=== PATIENT | female | born 1940 ===

== ENCOUNTER 2016-08-14 13:09 | Observation (INO) | payer MEDICARE, OTHER ==
--- NOTE | 2016-08-14 14:37 | C.PDOC ---
History Of Present Illness 76F brought in by family for weakness in left upper arm that started yesterday. they also noted some confusion and "no acting right" 2 days ago on sat. they saw pcp today and was sent here. she had a ICH back in may and similar sx at that time. she has baseline weakness in right arm from that. no change in sx today from yesterday. mental status baseline currently. Time Seen by Provider: 08/14/16 14:32 Chief Complaint (Nursing): Weakness/Neurological Deficit Past Medical History Vital Signs: Last Vital Signs Temp 98.2 F 08/14/16 14:35 Pulse 67 08/14/16 14:35 Resp 18 08/14/16 14:35 BP 155/74 H 08/14/16 14:35 Pulse Ox 100 08/14/16 16:42 - Medical History PMH: Arthritis, HTN, Hypercholesterolemia, Peripheral Edema (Hx of left leg swelling) Family History: States: Unknown Family Hx - Social History Hx Tobacco Use: No Hx Alcohol Use: No Hx Substance Use: No - Immunization History Hx Tetanus Toxoid Vaccination: Yes Hx Influenza Vaccination: Yes Hx Pneumococcal Vaccination: Yes Review Of Systems Except As Marked, All Systems Reviewed And Found Negative. Constitutional: Negative for: Fever Eyes: Negative for: Vision Change Cardiovascular: Negative for: Chest Pain Respiratory: Negative for: Cough, Shortness of Breath Gastrointestinal: Negative for: Vomiting, Abdominal Pain Genitourinary: Negative for: Dysuria Musculoskeletal: Positive for: Arm Pain Neurological: Positive for: Weakness. Negative for: Numbness, Altered Mental Status (resolved), Headache Physical Exam - Physical Exam Appears: Well, Non-toxic, No Acute Distress Skin: Warm, Dry Head: Atraumatic Eye(s): bilateral: PERRL, EOMI Oral Mucosa: Moist Lips: No Swelling Neck: Normal ROM Cardiovascular: Rhythm Regular Respiratory: No Decreased Breath Sounds, No Accessory Muscle Use, No Rales, No Rhonchi, No Wheezing Gastrointestinal/Abdominal: Soft, No Tenderness Extremity: No Swelling Pulses: Left Radial: Normal, Right Radial: Normal, Left Dorsalis Pedis: Normal, Right Dorsalis Pedis: Normal Neurological/Psych: Oriented x3, Normal Cranial Nerves, Cerebellar Signs (mild drift right arm), Normal Motor, Normal Sensation ED Course And Treatment - Laboratory Results Result Diagrams: 08/14/16 15:57 08/14/16 15:57 O2 Sat by Pulse Oximetry: 100 NIHSS Stroke Scale - Date/Time Evaluation Performed Date Performed: 08/14/16 Time Performed: 14:40 - How Severe is the Stoke Level of Consciousness: 0=Alert LOC to Questions: 0=Both comments correct LOC to commands: 0=Obeys both correctly Best Gaze: 0=Normal Visual: 0=No visual loss Facial: 0=Normal Motor Arm - Left: 0=No drift Motor Arm - Right: 1=Drift noted before 10 sec Motor Leg - Left: 0=No drift Motor Leg - Right: 0=No drift Limb Ataxia: 0=Absent Sensory: 1=Mild to moderate loss Best Language: 0=No aphasia Dysarthia: 0=Normal articulation Extinction & Inattention (Neglect): 0=Normal, no object Score: 2 Severity Of Stroke: 1-4= Minor Stroke rTPA Inclusion/Exclusion - Exclusion Criteria for Altepase History of: Intracranial hemorrhage Medical Decision Making Medical Decision Making: ecg- nsr 66, nl axis, 1st deg avb, no stemi [address] david who will admit [address] Head, read by Rupesh Caruso MD: PROCEDURE: CT HEAD WITHOUT CONTRAST. HISTORY: right arm weak x1 day, hx of ICH COMPARISON: Comparison made with prior CT scan and MRI both dated 07/06/2016. TECHNIQUE: Axial computed tomography images were obtained through the head/brain without intravenous contrast. Radiation dose: Total exam DLP = 890.81 mGy-cm. FINDINGS: HEMORRHAGE: Previously noted elliptical shaped at hemorrhage within the left parasagittal mid and superior frontal region continues to evolve in unremarkable fashion. The hematoma has diminished in size, density and conspicuity. . Mild low- attenuation surrounding low-attenuation edema is present of has diminished as well. Changes no new hemorrhages are seen. BRAIN: Moderate chronic periventricular white matter ischemic extending peripherally into the deep and subcortical white matter of both cerebral hemispheres as well as multiple superior bilateral basal nuclei/ coronal radiata chronic appearing infarcts less well seen on this exam as compared to high-resolution MRI. VENTRICLES: Mild moderate central volume loss evidenced by disproportionate enlargement of the ventricles as compared the sulci unchanged. CALVARIUM: Unremarkable. PARANASAL SINUSES: Unremarkable as visualized. No significant inflammatory changes. MASTOID AIR CELLS: Unremarkable as visualized. No inflammatory changes. OTHER FINDINGS: None. IMPRESSION: Left parasagittal frontal lobe hematoma has diminished in size, density and conspicuity. Low-attenuation edema surrounding the hematoma has also diminished. . No new hemorrhages. Chronic white matter and basal nuclei ischemic changes less well seen on this study compared to high-resolution MRI. Mild moderate loss central volume loss. Disposition - Disposition Disposition: HOSPITALIZED Disposition Time: 16:30 Condition: STABLE - Clinical Impression Clinical Impression: Weakness of limb, Altered mental status
--- NOTE | 2016-08-14 15:38 | CT ---
PROCEDURE: CT HEAD WITHOUT CONTRAST. HISTORY: right arm weak x1 day, hx of ICH COMPARISON: Comparison made with prior CT scan and MRI both dated 07/06/2016. TECHNIQUE: Axial computed tomography images were obtained through the head/brain without intravenous contrast. Radiation dose: Total exam DLP = 890.81 mGy-cm. FINDINGS: HEMORRHAGE: Previously noted elliptical shaped at hemorrhage within the left parasagittal mid and superior frontal region continues to evolve in unremarkable fashion. The hematoma has diminished in size, density and conspicuity. . Mild low-attenuation surrounding low-attenuation edema is present of has diminished as well. Changes no new hemorrhages are seen. BRAIN: Moderate chronic periventricular white matter ischemic extending peripherally into the deep and subcortical white matter of both cerebral hemispheres as well as multiple superior bilateral basal nuclei/ coronal radiata chronic appearing infarcts less well seen on this exam as compared to high-resolution MRI. VENTRICLES: Mild moderate central volume loss evidenced by disproportionate enlargement of the ventricles as compared the sulci unchanged. CALVARIUM: Unremarkable. PARANASAL SINUSES: Unremarkable as visualized. No significant inflammatory changes. MASTOID AIR CELLS: Unremarkable as visualized. No inflammatory changes. OTHER FINDINGS: None. IMPRESSION: Left parasagittal frontal lobe hematoma has diminished in size, density and conspicuity. Low-attenuation edema surrounding the hematoma has also diminished. . No new hemorrhages. Chronic white matter and basal nuclei ischemic changes less well seen on this study compared to high-resolution MRI. Mild moderate loss central volume loss.
[2016-08-14 16:03] LABS: BASO % 0.5 % (0.0-2.0); EOS # 0.1 K/uL (0.0-0.7); HEMATOCRIT 30.9 % (34.0-47.0); LYMPH # 1.7 K/uL (1.0-4.3); LYMPH % 21.8 % (20.0-40.0); MEAN CELL VOLUME 75.6 fL (81.0-99.0); MEAN CORPUSCULAR HEMOGLOBIN 24.8 pg (27.0-31.0); MEAN CORPUSCULAR HGB CONC 32.8 g/dL (33.0-37.0); MEAN PLATELET VOLUME 8.5 fL (7.2-11.7); MONO # 0.8 K/uL (0.0-0.8); MONO % 10.9 % (0.0-10.0); RED CELL DISTRIBUTION WIDTH 14.5 % (11.5-14.5); WHITE BLOOD COUNT 7.8 K/uL (4.8-10.8)
[2016-08-14 16:09] LABS: CHLORIDE 95 mmol/L (98-107); POTASSIUM 3.6 mmol/L (3.6-5.2); SODIUM 138 mmol/L (132-148)
[2016-08-14 16:11] LABS: AST/SGOT 25 U/L (14-36); BILIRUBIN,TOTAL 0.9 mg/dL (0.2-1.3); CARBON DIOXIDE 28 mmol/L (22-30); GFR AFRICAN-AMERICAN > 60
[2016-08-14 16:12] LABS: ALB/GLOB RATIO 1.1 (1.0-2.1); ALKALINE PHOSPHATASE 66 U/L (38-126); ALT/SGPT 15 U/L (9-52); BLOOD UREA NITROGEN 15 mg/dL (7-17); GLUCOSE,RANDOM 111 mg/dL (65-105); TOTAL PROTEIN 7.5 g/dL (6.3-8.3)
[2016-08-14 16:13] LABS: CALCIUM 9.2 mg/dl (8.6-10.4)
[2016-08-14 16:48] LABS: INR 1.2
[2016-08-14] MEDS ORDERED: Magnesium Hydroxide Susp 30 ml UD PO PRN (21:32)
[2016-08-14 22:18] LABS: CHOLESTEROL 140 mg/dL (0-199)
--- NOTE | 2016-08-14 23:47 | CP.PCM.CON ---
History of Present Illness - History of Present Illness History of Present Illness: Chief Complaint (Nursing): Altered Mental Status, Weakness/Neurological Deficit 76F brought in by family for weakness in Right upper arm that started yesterday. They also noted some confusion and "not acting right" 2 days ago on Sunday. She had a Urinary incontinence on Sunday, but did not tell her kids. Her Right sided weakness has improved. H/O Negative Carotid Doppler in May 2016 She does not walk since few months due to her May 2016 Stroke. She said she has no Cardiac Pacemaker and has no Contraindication for an MRI. They saw pcp today and was sent here. she had a Intra Crania Hemorrhage back in May and similar symptoms at that time. she has baseline weakness in right arm from that. no change in symptoms today from yesterday. mental status baseline currently. Clinical Impression: Weakness of limb, Altered mental status Past Medical History Vital Signs: Last Vital Signs Temp 98.2 F 08/14/16 14:35 Pulse 67 08/14/16 14:35 Resp 18 08/14/16 14:35 BP 155/74 H 08/14/16 14:35 Pulse Ox 100 08/14/16 16:42 - Medical History PMH: Arthritis, HTN, Hypercholesterolemia, Peripheral Edema (Hx of left leg swelling) Colon cancer with partial Colon resection, old H/o Hysterectomy. Family History: States: Unknown Family Hx - Social History Hx Tobacco Use: No Hx Alcohol Use: No Hx Substance Use: No - Immunization History Hx Tetanus Toxoid Vaccination: Yes Hx Influenza Vaccination: Yes Hx Pneumococcal Vaccination: Yes Review Of Systems Except As Marked, All Systems Reviewed And Found Negative. Constitutional: Negative for: Fever Eyes: Negative for: Vision Change Cardiovascular: Negative for: Chest Pain Respiratory: Negative for: Cough, Shortness of Breath Gastrointestinal: Negative for: Vomiting, Abdominal Pain Genitourinary: Negative for: Dysuria Musculoskeletal: Positive for: Arm Pain Neurological: Positive for: Weakness. Negative for: Numbness, Altered Mental Status (resolved), Headache O2 Sat by Pulse Oximetry: 100 NIHSS Stroke Scale Score is 2 - Date/Time Evaluation Performed Date Performed: 08/14/16 Time Performed: 14:40 - How Severe is the Stoke Level of Consciousness: 0=Alert LOC to Questions: 0=Both comments correct LOC to commands: 0=Obeys both correctly Best Gaze: 0=Normal Visual: 0=No visual loss Facial: 0=Normal Motor Arm - Left: 0=No drift Motor Arm - Right: 1=Drift noted before 10 sec Motor Leg - Left: 0=No drift Motor Leg - Right: 0=No drift Limb Ataxia: 0=Absent Sensory: 1=Mild to moderate loss Best Language: 0=No aphasia Dysarthia: 0=Normal articulation Extinction & Inattention (Neglect): 0=Normal, no object Score: 2 Severity Of Stroke: 1-4= Minor Stroke rTPA Inclusion/Exclusion - Exclusion Criteria for Altepase History of: Intracranial hemorrhage Medical Decision Making: EKG- nsr 66, Normal axis, 1st degree A-V Heart block, no stemi CT Brain IMPRESSION: Left parasagittal frontal lobe hematoma has diminished in size, density and conspicuity. Low-attenuation edema surrounding the hematoma has also diminished. . No new hemorrhages. Chronic white matter and basal nuclei ischemic changes less well seen on this study compared to high-resolution MRI. Mild moderate loss central volume loss. Past Patient History - Past Medical History & Family History Past Medical History?: Yes - Past Social History Smoking Status: Never Smoked - CARDIAC Hx Cardiac Disorders: Yes Hx Hypercholesterolemia: Yes Hx Hypertension: Yes Hx Peripheral Edema: Yes (Hx of left leg swelling) - PULMONARY Hx Respiratory Disorders: No - NEUROLOGICAL Hx Neurological Disorder: Yes HX Cerebrovascular Accident: Yes (R sided residual- may 2016) Hx Dizziness: Yes - HEENT Hx HEENT Problems: No - RENAL Hx Chronic Kidney Disease: No - ENDOCRINE/METABOLIC Hx Endocrine Disorders: No Other/Comment: sugar high - HEMATOLOGICAL/ONCOLOGICAL Hx Blood Disorders: Yes Hx Cancer: Yes (colon cancer with resection) - INTEGUMENTARY Hx Dermatological Problems: No - MUSCULOSKELETAL/RHEUMATOLOGICAL Hx Musculoskeletal Disorders: Yes Hx Arthritis: Yes - GASTROINTESTINAL Hx Gastrointestinal Disorders: Yes Hx Gastroesophageal Reflux: Yes Other/Comment: Partial colon resection 2004 due to cancer - GENITOURINARY/GYNECOLOGICAL Hx Genitourinary Disorders: Yes Hx Incontinence: Yes Other/Comment: hysterectomy - PSYCHIATRIC Hx Substance Use: No - SURGICAL HISTORY Hx Surgeries: Yes Hx Hysterectomy: Yes Other/Comment: partial colon resection 2004 - ANESTHESIA Hx Anesthesia: Yes Hx Anesthesia Reactions: No Meds Allergies/Adverse Reactions: Allergies Allergy/AdvReac Type Severity Reaction Status Date / Time No Known Allergies Allergy Verified 08/14/16 14:10 - Medications Medications: Current Medications Acetaminophen (Tylenol 325mg Tab) 2 mg PO Q4 PRN PRN Reason: Temperature Amlodipine Besylate (Norvasc) 10 mg PO DAILY [facility] Aspirin (Ecotrin) 325 mg PO DAILY [facility] Clopidogrel Bisulfate (Plavix) 75 mg PO DAILY [facility] Losartan Potassium (Cozaar) 100 mg PO DAILY [facility] Magnesium Hydroxide (Milk Of Magnesia) 30 ml PO HS PRN PRN Reason: Constipation Pantoprazole Sodium (Protonix Ec Tab) 40 mg PO DAILY [facility] Rosuvastatin Calcium (Crestor) 10 mg PO HS [facility] Last Admin: 08/14/16 22:20 Dose: 10 mg Physical Exam - Neurological Exam Additional comments: Mental Status: Awake Alert Oriented X 3 Fluent coherent speech Normal Cognition Follows commands. Cranial Nerves II to XII: No Deficits Motor: Normal Tone, Power and muscle bulk DTR 0/4 Toes are up going on the Right Cerebellar: Normal FNT bilaterally Unable to assess the LEs Sensory: No Deficits Stature and Gait: Unable. Results - Vital Signs Recent Vital Signs: Last Vital Signs Temp 99 F 08/14/16 22:06 Pulse 64 08/14/16 22:41 Resp 18 08/14/16 22:06 BP 144/85 08/14/16 22:06 Pulse Ox 98 08/14/16 22:06 - Labs Result Diagrams: 08/14/16 15:57 08/14/16 15:57 Labs: Laboratory Results - last 24 hr 08/14/16 22:07 Triglycerides 89 D Cholesterol 140 LDL Cholesterol Direct 47 HDL Cholesterol 55 Assessment & Plan (1) Altered mental status Assessment and Plan: Improved significantly since then. 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 Status: Acute
[2016-08-15 06:28] LABS: URIC ACID 4.4 mg/dL (2.2-7.5)
[2016-08-15 06:57] LABS: THYROID STIMULATING HORMONE 2.42 mIU/L (0.46-4.68)
[2016-08-15] MEDS: Pantoprazole 40 mg EC Tab PO SCH (09:49)
[2016-08-15] MEDS ORDERED: Aspirin 325 mg EC Tablets PO SCH (10:00)
--- NOTE | 2016-08-15 11:40 | CP.PCM.HP ---
History of Present Illness - History of Present Illness History of Present Illness: COMPREHENSIVE HISTORY & PHYSICAL EXAM HPI PT. ADMITTED FROM ER WITH WEAKNESS OF R. U EXT. 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 UEXT AND MILD WAEKNESS IN R. LOWER EXT . SPEECH HAS NORMALISED . CT OF HEAD SHOWED NO NEW FINDINGS PT ALSOM HAD URINARY INCONTINANCE PAST HIST. HTN/STROKE PERSONAL HIST: Smoking. N Alcohol. N Allergy N Travel_- . FAMILY HIST : ROS : Constitutional: Negative for weight change, chills, night sweats Eyes: Negative for redness, swelling, itching, discharge, vision changes, blurry vision, double vision, glaucoma, cataracts, Ears: Negative for hearing loss, ringing, , tinnitus, vertigo Nose: Negative for rhinorrhea, stuffiness, sniffing, itching, postnasal drip, discoloration, nasal congestion and epistaxis. Throat: Negative for throat clearing, sore throat, hoarseness, difficulty swallowing and difficulty speaking. Respiratory: Negative for cough, chest tightness, sputum or phlegm, chronic cough, hemoptysis, wheezing, snoring at night, pleuritic chest pain and daytime somnolence. Cardiovascular: Negative for chest pain, palpitations, orthopnea, PND, Edema of legs, leg cramps, angina, claudication, , irregular heartbeat, Neurology: R UPPER EXT WEAKNESS Gastrointestinal: Negative for difficulty swallowing, diarrhea, constipation, black stools, rectal bleeding, nausea, flatulence, reflux, poor appetite, changes in bowel habits, abdominal pain Genitourinary: Negative for frequent urination, hematuria, discharge, incontinence, urinary retention, frequent UTI, Psychiatric: Negative for depression, anxiety/panic, suicidal tendencies, Musculoskeletal: Negative for swollen joints, back pain, , neck pain, morning stiffness of joints, . Skin: Negative for rash, ulcers, itching, dry skin and pigmented lesions. P/E: Constitutional: Appears stated age and in no apparent distress. Head: Normocephalic. Ears: External ear canals patent without inflammation. Tympanic membranes intact with normal light reflex and landmark. Eyes: Pupils are central, bilaterally equal, symmetrical and reacts to light with normal movements and no icterus or pallor. Nose: External nares are patent. Mucosa is pink Mouth-Throat: Good general appearance and condition. No post-pharyngeal/oropharyngeal erythema and tonsillar hypertrophy. Good dental hygiene. Neck-Lymphatic: Neck is supple with normal ROM, no thyromegaly, lymph nodes or masses. JVD is normal with no carotid bruit. Lungs: Clear to percussion and auscultation with bilateral normal air entry. Cardiovascular: S1 and S2 are normal with no murmurs, gallops and rub. GI Exam: No hepatomegaly. Abdomen is soft and non-tender. No Organomegaly , masses or hernias are evident and bowel sounds are normal and active. Neurology: Higher function and all cranial nerves intact, with no gross motor or sensory deficit. Superficial and deep reflexes are normal with downwards planters. No cerebellar deficit with normal gait. Musculoskeletal: No tender spots with normal curvature of the spine with no swelling or restricted ROM of the small and large joints. Extremities: Homans sign absent. Intact pulses with no pitting edema, calf tenderness or skin color changes. Skin: No rash, eruptions or abnormal skin pigmentation LAB/RADIOLOGY: ASSESMENT : CURRENTLU PT HAS NO NEURO DEFICIT S/P HEM. STROKE ON R. SIDE WITH RECPOVERY HTN PLAN MRI/EEG Present on Admission - Present on Admission Any Indicators Present on Admission: No Past Patient History - Past Medical History & Family History Past Medical History?: Yes - Past Social History Smoking Status: Never Smoked - CARDIAC Hx Cardiac Disorders: Yes Hx Hypercholesterolemia: Yes Hx Hypertension: Yes Hx Peripheral Edema: Yes (Hx of left leg swelling) - PULMONARY Hx Respiratory Disorders: No - NEUROLOGICAL Hx Neurological Disorder: Yes HX Cerebrovascular Accident: Yes (R sided residual- may 2016) Hx Dizziness: Yes - HEENT Hx HEENT Problems: No - RENAL Hx Chronic Kidney Disease: No - ENDOCRINE/METABOLIC Hx Endocrine Disorders: No Other/Comment: sugar high - HEMATOLOGICAL/ONCOLOGICAL Hx Blood Disorders: Yes Hx Cancer: Yes (colon cancer with resection) - INTEGUMENTARY Hx Dermatological Problems: No - MUSCULOSKELETAL/RHEUMATOLOGICAL Hx Musculoskeletal Disorders: Yes Hx Arthritis: Yes - GASTROINTESTINAL Hx Gastrointestinal Disorders: Yes Hx Gastroesophageal Reflux: Yes Other/Comment: Partial colon resection 2004 due to cancer - GENITOURINARY/GYNECOLOGICAL Hx Genitourinary Disorders: Yes Hx Incontinence: Yes Other/Comment: hysterectomy - PSYCHIATRIC Hx Substance Use: No - SURGICAL HISTORY Hx Surgeries: Yes Hx Hysterectomy: Yes Other/Comment: partial colon resection 2004 - ANESTHESIA Hx Anesthesia: Yes Hx Anesthesia Reactions: No Meds Allergies/Adverse Reactions: Allergies Allergy/AdvReac Type Severity Reaction Status Date / Time No Known Allergies Allergy Verified 08/14/16 14:10 Results - Vital Signs Recent Vital Signs: Last Vital Signs Temp 98.3 F 08/15/16 09:48 Pulse 68 08/15/16 09:48 Resp 18 08/15/16 09:48 BP 136/71 08/15/16 09:48 Pulse Ox 97 08/15/16 09:48 - Labs Result Diagrams: 08/14/16 15:57 08/14/16 15:57 Labs: Laboratory Results - last 24 hr 08/14/16 08/15/16 22:07 06:07 ESR 43 H Hemoglobin A1c 7.0 H Uric Acid 4.4 C-React Prot High Sens > 15.00 H Triglycerides 89 D 88 Cholesterol 140 131 LDL Cholesterol Direct 47 45 HDL Cholesterol 55 45 TSH 3rd Generation 2.42 Rheum Arthritis Panel Negative
--- NOTE | 2016-08-15 14:00 | MRI ---
PROCEDURE: MRI BRAIN WITHOUT CONTRAST HISTORY: CVA, Seizures COMPARISON: Noncontrast head CT from 08/14/2016 and 07/06/2016. MRI brain without contrast from 07/06/2009. TECHNIQUE: Multiplanar, multisequence MR images of the brain were obtained without intravenous contrast enhancement. FINDINGS: HEMORRHAGE: There is interval expected evolution of known left parasagittal hematoma which now appears hyperintense on T1 weighted and hypointense T2 weighted images with a smaller T2 hyperintense area in the immediate paramedian region. There is a peripheral hypo intense rim on all sequences and peripheral increased magnetic susceptibility on gradient image. The hematoma now measures 4.6 x 1.4 x 4.7 cm and there is moderate surrounding vasogenic edema with mild mass effect on the anterior body of the corpus callosum. DWI: No evidence of an acute or early subacute infarction. BRAIN PARENCHYMA: There is no extra-axial fluid collection. Again seen are mild chronic microangiopathic changes. The midline sagittal structures are normal. VENTRICLES: There is mild age-related global parenchymal volume loss and proportionate enlargement of the ventricles and cortical sulci. CRANIUM: There is normal bone marrow signal pattern. ORBITS: Grossly unremarkable. PARANASAL SINUSES/MASTOIDS: Predominantly clear. VASCULAR SYSTEM: There are normal signal voids in the larger intracranial arteries. OTHER FINDINGS: None. IMPRESSION: Interval expected evolution of known left paramedian frontal lobe hematoma which now measures 4.6 x 1.4 x 4.7 cm with moderate surrounding vasogenic edema and mild mass effect on the anterior body of the corpus callosum. No evidence of midline shift or herniation.
--- NOTE | 2016-08-15 20:35 | CARD ---
APPROVED REPORT EKG Measurement Heart [id number] CO [id number] <Conclusion> Sinus rhythm with 1st degree AV block Otherwise normal ECG
--- NOTE | 2016-08-16 00:11 | CP.PCM.PN ---
Subjective - Date & Time of Evaluation Date of Evaluation: 08/15/16 Time of Evaluation: 21:00 - Subjective Subjective: After the result of the MRI Brain showing a hematoma, I recommend to hold ASA and Plavix for a week to avoid complications. CVA, Transient Right Hemiparesis, old history of the very same condition in May 2016. She is stable. EKG: Sinus rhythm with 1st degree A-V block Otherwise normal ECG. High ESR 43. High CRP above 15. High Hb A1C 7. She has a picture of a Borderline DM. Normal TSH. IMPRESSION of the MRI Brain: Interval expected evolution of known left paramedian frontal lobe hematoma which now measures 4.6 x 1.4 x 4.7 cm with moderate surrounding vasogenic edema and mild mass effect on the anterior body of the corpus callosum. No evidence of midline shift or herniation. The ASA and Plavix are given and Dr Rodriguez is not objecting giving the ASA and Plavix. The Stroke is mild and is not causing a midline shift. Lipid Profile is normal. Patient is fully awake, alert oriented X 2, has difficulty with being oriented to time. Objective - Vital Signs/Intake and Output Vital Signs (last 24 hours): Temp Pulse Resp BP Pulse Ox 99.4 F 74 20 122/67 98 08/15/16 15:30 08/15/16 16:00 08/15/16 15:30 08/15/16 15:30 08/15/16 15:30 Intake and Output: 08/15/16 08/16/16 18:59 06:59 Intake Total 250 Balance 250 - Medications Medications: Current Medications Acetaminophen (Tylenol 325mg Tab) 2 mg PO Q4 PRN PRN Reason: Temperature Amlodipine Besylate (Norvasc) 10 mg PO DAILY [facility] Last Admin: 08/15/16 09:50 Dose: 10 mg Aspirin (Ecotrin) 325 mg PO DAILY [facility] Last Admin: 08/15/16 09:49 Dose: 325 mg Clopidogrel Bisulfate (Plavix) 75 mg PO DAILY [facility] Last Admin: 08/15/16 09:50 Dose: 75 mg Losartan Potassium (Cozaar) 100 mg PO DAILY [facility] Last Admin: 08/15/16 09:50 Dose: 100 mg Magnesium Hydroxide (Milk Of Magnesia) 30 ml PO HS PRN PRN Reason: Constipation Pantoprazole Sodium (Protonix Ec Tab) 40 mg PO DAILY [facility] Last Admin: 08/15/16 09:49 Dose: 40 mg Rosuvastatin Calcium (Crestor) 10 mg PO HS [facility] Last Admin: 08/15/16 21:28 Dose: 10 mg - Labs Labs: PT 12.9 SECONDS (9.7-12.2) H 08/14/16 15:58 INR 1.2 08/14/16 15:58 APTT 27 SECONDS (21-34) 08/14/16 15:57 Assessment and Plan (1) Altered mental status Status: Acute (2) Weakness of limb Status: Acute (3) Intraparenchymal hematoma of brain Status: Acute (4) Hypertension Status: Chronic (5) CVA (cerebral vascular accident) Assessment & Plan: Abnormal MRI of the Brain showing an area of CVA of new onset at the same area of the previous Stroke. No Midline shift, only local swelling. After the result of the MRI Brain showing a hematoma, I recommend to hold ASA and Plavix for a week to avoid complications. 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
[2016-08-16] MEDS: Pantoprazole 40 mg EC Tab PO SCH (09:25)
[2016-08-16 12:34] LABS: ANA TITER 1:40
--- NOTE | 2016-08-16 13:15 | CP.PCM.DIS ---
Provider - Provider Date of Admission: 08/14/16 16:42 Attending physician: Eliana Rodriguez MD Time Spent in preparation of Discharge (in minutes): 30 Hospital Course - Lab Results Lab Results: Most Recent Lab Values WBC 7.8 K/uL (4.8-10.8) 08/14/16 15:57 RBC 4.09 Mil/uL (3.80-5.20) 08/14/16 15:57 Hgb 10.1 g/dL (11.0-16.0) L D 08/14/16 15:57 Hct 30.9 % (34.0-47.0) L 08/14/16 15:57 MCV 75.6 fL (81.0-99.0) L 08/14/16 15:57 MCH 24.8 pg (27.0-31.0) L 08/14/16 15:57 MCHC 32.8 g/dL (33.0-37.0) L 08/14/16 15:57 RDW 14.5 % (11.5-14.5) 08/14/16 15:57 Plt Count 200 K/uL (130-400) 08/14/16 15:57 MPV 8.5 fL (7.2-11.7) 08/14/16 15:57 Neut % (Auto) 65.8 % (50.0-75.0) 08/14/16 15:57 Lymph % (Auto) 21.8 % (20.0-40.0) 08/14/16 15:57 Sharkey % (Auto) 10.9 % (0.0-10.0) H 08/14/16 15:57 Eos % (Auto) 1.0 % (0.0-4.0) 08/14/16 15:57 Baso % (Auto) 0.5 % (0.0-2.0) 08/14/16 15:57 Neut # 5.1 K/uL (1.8-7.0) 08/14/16 15:57 Lymph # 1.7 K/uL (1.0-4.3) 08/14/16 15:57 Sharkey # 0.8 K/uL (0.0-0.8) 08/14/16 15:57 Eos # 0.1 K/uL (0.0-0.7) 08/14/16 15:57 Baso # 0.0 K/uL (0.0-0.2) 08/14/16 15:57 ESR 43 mm/hr (0-20) H 08/15/16 06:07 PT 12.9 SECONDS (9.7-12.2) H 08/14/16 15:58 INR 1.2 08/14/16 15:58 APTT 27 SECONDS (21-34) 08/14/16 15:57 Sodium 138 mmol/L (132-148) 08/14/16 15:57 Potassium 3.6 mmol/L (3.6-5.2) 08/14/16 15:57 Chloride 95 mmol/L (98-107) L 08/14/16 15:57 Carbon Dioxide 28 mmol/L (22-30) 08/14/16 15:57 Anion Gap 19 (10-20) 08/14/16 15:57 BUN 15 mg/dL (7-17) 08/14/16 15:57 Creatinine 0.6 MG/DL (0.7-1.2) L 08/14/16 15:57 Est GFR ( Amer) > 60 08/14/16 15:57 Est GFR (Non-Af Amer) > 60 08/14/16 15:57 Random Glucose 111 mg/dL (65-105) H 08/14/16 15:57 Hemoglobin A1c 7.0 % (4.2-6.5) H 08/15/16 06:07 Uric Acid 4.4 mg/dL (2.2-7.5) 08/15/16 06:07 Calcium 9.2 mg/dl (8.6-10.4) 08/14/16 15:57 Total Bilirubin 0.9 mg/dL (0.2-1.3) 08/14/16 15:57 AST 25 U/L (14-36) 08/14/16 15:57 ALT 15 U/L (9-52) 08/14/16 15:57 Alkaline Phosphatase 66 U/L (38-126) 08/14/16 15:57 C-React Prot High Sens > 15.00 mg/L (1.00-3.00) H 08/15/16 06:07 Total Protein 7.5 g/dL (6.3-8.3) 08/14/16 15:57 Albumin 4.0 g/dL (3.5-5.0) 08/14/16 15:57 Globulin 3.6 gm/dL (2.2-3.9) 08/14/16 15:57 Albumin/Globulin Ratio 1.1 (1.0-2.1) 08/14/16 15:57 Triglycerides 88 mg/dL (0-149) 08/15/16 06:07 Cholesterol 131 mg/dL (0-199) 08/15/16 06:07 LDL Cholesterol Direct 45 mg/dL (0-129) 08/15/16 06:07 HDL Cholesterol 45 mg/dL (30-70) 08/15/16 06:07 TSH 3rd Generation 2.42 mIU/L (0.46-4.68) 08/15/16 06:07 Rheum Arthritis Panel Negative (NEGATIVE) 08/15/16 06:07 JESUSITA 6 Profile Positive (NEGATIVE) H 08/15/16 06:07 JESUSITA Titer 1:40 H 08/15/16 06:07 JESUSITA Pattern Speckled H 08/15/16 06:07 - Hospital Course Hospital Course: PT. ADMITTED FROM ER WITH WEAKNESS OF R. U EXT. 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 UEXT AND MILD WAEKNESS IN R. LOWER EXT . SPEECH HAS NORMALISED . CT OF HEAD SHOWED NO NEW FINDINGS PT ALSOM HAD URINARY INCONTINANCE MRI HEAD SHOWED NONEW FINDINGS, OLD HEMATOMA ON LEFT FRONTAL REGION PT HAS NO NEURO DEFICIT WILL D/C WITHOUT ASA /PLAVIX PER NEUROLOGY EEG SHOWED FOCAL SEIZURE POINT PER DR. BELL PT WAS RX KEPPRA 500MG BID Discharge Plan - Follow Up Plan Condition: STABLE Disposition: HOME/ ROUTINE Instructions: Heart Healthy Diet (DC), Hypertension (DC), Stroke (DC) Additional Instructions: Follow up with PMD in 1 week No aspirin or plavix for now as per Neurologist. Follow up with neurologist in 1 week Referrals: Mitchel Bell MD [Staff Provider] - Eliana Rodriguez MD [Staff Provider] -
--- NOTE | 2016-08-16 15:31 | CP.PCM.PN ---
Subjective - Date & Time of Evaluation Date of Evaluation: 08/16/16 Time of Evaluation: 15:32 - Subjective Subjective: Alert, awake, no acute distress. Objective - Vital Signs/Intake and Output Vital Signs (last 24 hours): Temp Pulse Resp BP Pulse Ox 99 F 71 18 133/66 98 08/16/16 07:20 08/16/16 09:25 08/16/16 07:20 08/16/16 09:25 08/16/16 07:20 Intake and Output: 08/16/16 08/16/16 06:59 18:59 Intake Total 100 400 Balance 100 400 - Medications Medications: Current Medications Acetaminophen (Tylenol 325mg Tab) 650 mg PO Q4 PRN PRN Reason: Temperature Amlodipine Besylate (Norvasc) 10 mg PO DAILY [facility] Last Admin: 08/16/16 09:25 Dose: 10 mg Losartan Potassium (Cozaar) 100 mg PO DAILY [facility] Last Admin: 08/16/16 09:25 Dose: 100 mg Magnesium Hydroxide (Milk Of Magnesia) 30 ml PO HS PRN PRN Reason: Constipation Pantoprazole Sodium (Protonix Ec Tab) 40 mg PO DAILY [facility] Last Admin: 08/16/16 09:25 Dose: 40 mg Rosuvastatin Calcium (Crestor) 10 mg PO HS [facility] Last Admin: 08/15/16 21:28 Dose: 10 mg - Labs Labs: PT 12.9 SECONDS (9.7-12.2) H 08/14/16 15:58 INR 1.2 08/14/16 15:58 APTT 27 SECONDS (21-34) 08/14/16 15:57 Assessment and Plan - Assessment and Plan (Free Text) Assessment: Patient is seen and examined at the bedside. Alert, oriented, denies sob or pains, NAD. D/W DR Rodriguez, plan to discharge home today, advised to folow up with PMD in 1 week.
[2016-08-16 16:34] VITALS: BP 128/77; PULSE 68; RESP 20; TEMP 99.5; O2SAT 99
--- NOTE | 2016-08-16 23:08 | CP.PCM.PN ---
Subjective - Date & Time of Evaluation Date of Evaluation: 08/16/16 Time of Evaluation: 15:00 - Subjective Subjective: Patient is discharged safely while her MRI Brain is showing a hematoma. It is not clear if it is an old or new Hematoma. We can restatrt the Plavix and ASA next week for safety. She is doing better. EEG is needed to assess for possible seizures. Objective - Vital Signs/Intake and Output Vital Signs (last 24 hours): Temp Pulse Resp BP Pulse Ox 99.5 F 68 20 128/77 99 08/16/16 16:32 08/16/16 16:32 08/16/16 16:32 08/16/16 16:32 08/16/16 16:32 Intake and Output: 08/16/16 08/17/16 18:59 06:59 Intake Total 400 Balance 400 - Labs Labs: PT 12.9 SECONDS (9.7-12.2) H 08/14/16 15:58 INR 1.2 08/14/16 15:58 APTT 27 SECONDS (21-34) 08/14/16 15:57 Assessment and Plan (1) Altered mental status Status: Acute (2) Weakness of limb Status: Acute (3) Intraparenchymal hematoma of brain Status: Acute (4) Hypertension Status: Chronic (5) CVA (cerebral vascular accident) Status: Acute (6) Seizure as late effect of cerebrovascular accident (CVA) Status: Acute
--- NOTE | 2016-08-17 09:01 | EEG ---
DATE: 08/15/2016 The record is obtained for history of altered mental status, ____ weakness of the right side of the b ernestina mainly including the right upper extremity, rule out seizures, history of CVA, rule out cerebrova scular accident. The patient had the record while awake and drowsy. The record was symmetrically equal on both sides with a velocity of 8-9 cycles per second. The waves are fairly well-formed, fairly well organized wi th a posterior distribution, moderate in amplitude, reactive to eye opening by attenuation. There ar e abnormal discharges seen in the central area and in the left temporal, the left frontal area consis ting of dysrhythmia, slowing of the record, and large amplitude of the discharges, and this lasted in termittently for about 20 seconds. The record did not show any changes with photic stimulation. The hyperventilation was omitted. There are periods of drowsiness during which attenuation and slowing of the record were seen and theta waves were seen. There are no periods of sleep documented or repor jass. There were eye movement artifacts, electrode artifacts, and muscle movement artifacts. The photic stimulation did not produce any changes. Hyperventilation was omitted. IN SUMMARY: This is an abnormal record, significant for left cerebral dysrhythmia seen in the centra l, left temporal and left frontal area. This might be consistent with a seizure disorder as a result of her previous cerebrovascular accident. Clinical correlation is recommended. Mitchel Bell MD cc: [phone] TT: 08/17/2016 09:01:15 Confirmation # [id number] Dictation # [id number] mn
== END 2016-08-16 18:30 | disposition home or self-care (01) ==
LOC: C.ER 13:09 → C.9E 16:42 → C.6T 20:33
PROVIDERS: ADMIT Internal Medicine Cardiovascular Disease; ATTEND Internal Medicine Cardiovascular Disease
DX: R53.1 Weakness (principal); Z86.73 Personal history of transient ischemic attack (TIA), and cerebral infarction without residual deficits; G40.89 Other seizures; I10 Essential (primary) hypertension
CPT/HCPCS: 36415; 70450; 70551; 80053; 80061; 83036; 84443; 84550; 85025; 85610; 85651; 85730; 86038; 86039; 86140; 86430; 93005; 95812; 97116; 97162; 97166; 97530; 99285; G0378; G8978; G8979; G8987; G8988

== ENCOUNTER 2017-02-07 07:30 | Day surgery (SDC) | payer MEDICARE, OTHER ==
[2017-02-07 07:59] VITALS: BMI 29.2
[2017-02-07] MEDS ORDERED: Lactated Ringer's 1,000 ML IV ONE (10:05)
[2017-02-07] MEDS ORDERED: Propofol 10 mg/ml Inj (20 ML) ONE (10:11)
[2017-02-07] MEDS ORDERED: Glucagon Recombinant 1 mg Inj ONE (10:22)
[2017-02-07 12:34] VITALS: TEMP 97.5
[2017-02-07 12:35] VITALS: O2SAT 98
[2017-02-07 12:43] VITALS: BP 168/77; PULSE 59; RESP 18
== END 2017-02-07 12:06 | disposition home or self-care (01) ==
LOC: C.ENDO 07:30
PROVIDERS: ATTEND Internal Medicine Gastroenterology
DX: D12.2 Benign neoplasm of ascending colon (principal); D12.5 Benign neoplasm of sigmoid colon; D12.3 Benign neoplasm of transverse colon; K64.8 Other hemorrhoids
CPT/HCPCS: 45385; 88305; J1610; J2704; J7120

== ENCOUNTER 2017-02-26 07:16 | Emergency (ER) | payer MEDICARE, OTHER ==
[2017-02-26 07:16] VITALS: BMI 29.2
[2017-02-26 07:23] VITALS: TEMP 98.2; O2SAT 100
--- NOTE | 2017-02-26 08:40 | C.PDOC ---
History Of Present Illness 76 y/o female with history of HTN and stroke a few months ago, presents to emergency department with complaints of elevated blood pressure since last night. Patient also reports right arm pain and headache since last night. Denies fall or trauma. Family reports the patient lives at home alone with home health aide 6 days a week. Denies any strenuous activity. Otherwise, denies visual changes, palpitations, chest pain, new weakness or numbness, nausea, vomiting, or other associated symptoms. Time Seen by Provider: 02/26/17 07:35 Chief Complaint (Nursing): High Blood Pressure History Per: Patient History/Exam Limitations: no limitations Onset/Duration Of Symptoms: Days Current Symptoms Are (Timing): Still Present Associated Symptoms: denies: Photophobia, Nausea, Vomiting Recent travel outside of the [place]: No Past Medical History Reviewed: Historical Data, Nursing Documentation, Vital Signs Vital Signs: Last Vital Signs Temp 98.2 F 02/26/17 07:19 Pulse 62 02/26/17 11:34 Resp 16 02/26/17 11:34 BP 131/77 02/26/17 11:34 Pulse Ox 100 02/26/17 11:58 - Medical History PMH: Arthritis, HTN, Hypercholesterolemia, Peripheral Edema (Hx of left leg swelling) Family History: States: Unknown Family Hx - Social History Hx Tobacco Use: No Hx Alcohol Use: No Hx Substance Use: No - Immunization History Hx Tetanus Toxoid Vaccination: Yes Hx Influenza Vaccination: Yes Hx Pneumococcal Vaccination: Yes Review Of Systems Except As Marked, All Systems Reviewed And Found Negative. Constitutional: Negative for: Fever, Chills Cardiovascular: Negative for: Chest Pain, Palpitations Gastrointestinal: Negative for: Nausea, Vomiting, Abdominal Pain Musculoskeletal: Positive for: Arm Pain. Negative for: Neck Pain Skin: Negative for: Rash Neurological: Positive for: Headache. Negative for: Weakness, Numbness, Dizziness Physical Exam - Physical Exam Appears: Non-toxic, No Acute Distress Skin: Normal Color, Warm, Dry, No Rash Head: Atraumatic, Normacephalic Eye(s): bilateral: Normal Inspection, PERRL, EOMI Ear(s): Bilateral: Normal Nose: Normal Oral Mucosa: Moist Throat: No Erythema, No Exudate Neck: Normal ROM, No Midline Cervical Tenderness, No Paracervical Tenderness, Supple Chest: Symmetrical Cardiovascular: Rhythm Regular, No Friction Rub, No Murmur Respiratory: Normal Breath Sounds, No Accessory Muscle Use, No Rales, No Rhonchi , No Wheezing Gastrointestinal/Abdominal: Soft, No Tenderness, No Guarding, No Rebound Back: Normal Inspection, No Paraspinal Tenderness Extremity: Tenderness ((+) muscle spasm, right upper back), No Pedal Edema, Capillary Refill (< 2 sec.), No Deformity Pulses: Left Radial: Normal, Right Radial: Normal Neurological/Psych: Oriented x3, Normal Speech, Normal Cognition, Normal Motor, Normal Sensation Gait: Steady ED Course And Treatment - Laboratory Results Result Diagrams: 02/26/17 09:07 02/26/17 09:07 ECG: Interpreted By Me ECG Rhythm: Sinus Bradycardia ECG Interpretation: No Acute Changes Interpretation Of ECG: normal ST/T waves, normal axis Rate From EC (bpm) O2 Sat by Pulse Oximetry: 100 (RA) Pulse Ox Interpretation: Normal Progress Note: EKG, bloodwork ordered and reviewed. Sinus michael at 56; normal ST /T waves, normal axis. Treated with Toradol, Reglan, Benadryl, and IVFs. On reassessment, patient is resting comfortably, and is in no acute distress. Patient instructed to follow up with clinic/PMD within 1-2 days. Medical Decision Making Medical Decision Making: On re-eval, the patient reports improvement of symptoms. Lungs are CTA, heart is RRR, ambulatory in the ED with steady. Abdomen is soft, non-tender and the patient is tolerating PO well. Follow up with the medical doctor/clinic within 1-2 days. Return if worsened. Disposition - Disposition Referrals: Hong Salmeron MD [Medical Doctor] - Disposition: HOME/ ROUTINE Disposition Time: 11:40 Condition: GOOD Additional Instructions: Follow up with the medical doctor/clinic within 1-2 days without fail. Return if worsened. Prescriptions: Acetaminophen [Tylenol] 325 mg PO Q6 PRN #30 tab PRN Reason: Pain, Mild (1-3) Cyclobenzaprine [Cyclobenzaprine HCl] 10 mg PO BID #15 tab Instructions: Cervical Radiculopathy (ED), Hypertension (DC) Forms: [employer] (Sinhala) Print Language: IRANIAN - Clinical Impression Clinical Impression: Headache, Hypertension - PA / [employer] / Resident Statement MD/DO has reviewed & agrees with the documentation as recorded. - Scribe Statement The provider has reviewed the documentation as recorded by the Scribe Suraj Colby All medical record entries made by the Scribe were at my direction and personally dictated by me. I have reviewed the chart and agree that the record accurately reflects my personal performance of the history, physical exam, medical decision making, and the department course for this patient. I have also personally directed, reviewed, and agree with the discharge instructions and disposition.
[2017-02-26] MEDS ORDERED: DiphenhydrAMINE 50 mg/ml Inj IVP STA (08:47)
[2017-02-26] MEDS ORDERED: Sodium Chloride 0.9% 1,000 ML IV ONE (08:48)
[2017-02-26] MEDS ORDERED: Sodium Chloride 0.9% 1,000 ML ONE (08:56)
[2017-02-26] MEDS ORDERED: DiphenhydrAMINE 50 mg/ml Inj ONE (08:56)
[2017-02-26 09:20] LABS: BASO % 0.4 % (0.0-2.0); EOS % 0.6 % (0.0-4.0); HEMATOCRIT 35.4 % (34.0-47.0); LYMPH # 1.7 K/uL (1.0-4.3); LYMPH % 23.3 % (20.0-40.0); MEAN CORPUSCULAR HEMOGLOBIN 25.7 pg (27.0-31.0); MEAN CORPUSCULAR HGB CONC 32.9 g/dL (33.0-37.0); MEAN PLATELET VOLUME 8.8 fL (7.2-11.7); MONO # 0.6 K/uL (0.0-0.8); MONO % 7.7 % (0.0-10.0); RED CELL DISTRIBUTION WIDTH 15.1 % (11.5-14.5); WHITE BLOOD COUNT 7.4 K/uL (4.8-10.8)
[2017-02-26 09:24] LABS: MEAN CELL VOLUME 78.2 fL (81.0-99.0)
[2017-02-26 09:25] LABS: CHLORIDE 103 mmol/L (98-107); POTASSIUM 4.2 mmol/L (3.6-5.2); SODIUM 143 mmol/L (132-148)
[2017-02-26 09:27] LABS: BILIRUBIN,TOTAL 0.9 mg/dL (0.2-1.3); GFR AFRICAN-AMERICAN > 60
[2017-02-26 09:28] LABS: ALB/GLOB RATIO 1.3 (1.0-2.1); ALKALINE PHOSPHATASE 70 U/L (38-126); ALT/SGPT 29 U/L (9-52); AST/SGOT 27 U/L (14-36); BLOOD UREA NITROGEN 11 mg/dL (7-17); CALCIUM 9.1 mg/dl (8.6-10.4); CARBON DIOXIDE 25 mmol/L (22-30); GLUCOSE,RANDOM 96 mg/dL (65-105); TOTAL PROTEIN 7.4 g/dL (6.3-8.3)
[2017-02-26 11:34] VITALS: BP 131/77; PULSE 62; RESP 16
--- NOTE | 2017-02-28 12:04 | CARD ---
APPROVED REPORT EKG Measurement Heart [id number] MA [id number] [id number] <Conclusion> Sinus bradycardia Otherwise normal ECG
== END 2017-02-26 12:13 | disposition home or self-care (01) ==
LOC: C.ER 07:16
DX: I10 Essential (primary) hypertension (principal); R51 Headache
CPT/HCPCS: 80053; 85025; 93005; 96361; 96365; 96375; 99285; J1200; J1885; J2765; J7040

== ENCOUNTER 2017-08-13 19:12 | Emergency (ER) | payer MEDICARE, OTHER ==
[2017-08-13 19:12] VITALS: BMI 29.2
[2017-08-13 19:37] VITALS: TEMP 97.9
[2017-08-13] MEDS ORDERED: Sodium Chloride 0.9% 1,000 ML ONE (19:40)
--- NOTE | 2017-08-13 20:01 | C.PDOC ---
History Of Present Illness 77 year old female with PMHx of vertigo, CVA (1 year ago), HTN, seizures presents to the ED c/o abdominal pain, diarrhea for the past few days. Patient is also c/o dizziness, near syncopal episodes as well. Patient had a CVA a year ago that affect her right side of her body according to her daughter she is taking aspirin after it occurred. Patient states that when she is dizzy she feels like the room is spinning. Patient denies LOC, fever, chills, cough, recent travel, sick contacts. Chief Complaint (Nursing): GI Problem History Per: Patient, Family History/Exam Limitations: no limitations Onset/Duration Of Symptoms: Days Current Symptoms Are (Timing): Still Present Location Of Pain/Discomfort: Diffuse Quality Of Discomfort: "Pain" Associated Symptoms: Diarrhea Exacerbating Factors: None Alleviating Factors: None Recent travel outside of the [place]: No Additional History Per: Patient Abnormal Vaginal Bleeding: No Past Medical History Reviewed: Historical Data, Nursing Documentation, Vital Signs Vital Signs: Last Vital Signs Temp 97.9 F 08/13/17 21:37 Pulse 63 08/13/17 21:37 Resp 17 08/13/17 21:37 BP 122/67 08/13/17 21:37 Pulse Ox 98 08/13/17 21:37 - Medical History PMH: Arthritis, CVA (year ago), HTN, Hypercholesterolemia, Peripheral Edema (Hx of left leg swelling), Seizures Denies: Chronic Kidney Disease Surgical History: No Surg Hx Family History: States: Unknown Family Hx - Social History Hx Tobacco Use: No Hx Alcohol Use: No Hx Substance Use: No - Immunization History Hx Tetanus Toxoid Vaccination: Yes Hx Influenza Vaccination: Yes Hx Pneumococcal Vaccination: Yes Review Of Systems Constitutional: Negative for: Fever, Chills Cardiovascular: Positive for: Chest Pain Respiratory: Negative for: Cough, Shortness of Breath Gastrointestinal: Positive for: Abdominal Pain, Diarrhea Genitourinary: Negative for: Dysuria Musculoskeletal: Negative for: Back Pain Skin: Negative for: Rash Neurological: Positive for: Dizziness. Negative for: Weakness, Numbness, Headache Physical Exam - Physical Exam Appears: Non-toxic, No Acute Distress Skin: Normal Color, Warm, Dry Head: Atraumatic, Normacephalic Eye(s): bilateral: Normal Inspection, PERRL, EOMI Nose: No Discharge Oral Mucosa: Moist Neck: Normal ROM, Supple Chest: Symmetrical Cardiovascular: Rhythm Regular, No Murmur Respiratory: Normal Breath Sounds, No Rales, No Rhonchi, No Wheezing Gastrointestinal/Abdominal: Soft, No Tenderness, No Guarding, No Rebound Extremity: Normal ROM, No Tenderness, No Swelling Neurological/Psych: Oriented x3, Normal Speech, Normal Cranial Nerves, Normal Motor, Normal Sensation (rigth sided hemiparesis ), Other (pronator drift in right side) Gait: With Assistance (cane (occasionally)) ED Course And Treatment - Laboratory Results Result Diagrams: 08/13/17 20:03 08/13/17 20:03 ECG: Interpreted By Me, Viewed By Me ECG Rhythm: Sinus Rhythm ECG Interpretation: Normal Interpretation Of ECG: no ectopy, normal intervals, no ST or T wave abnormalities Rate From EC (BPM) O2 Sat by Pulse Oximetry: 100 (On RA) Pulse Ox Interpretation: Normal - CT Scan/US CT head Other Rad Studies (CT/US): Read By Radiologist, Radiology Report Reviewed CT/US Interpretation: EXAM: CT Head Without Intravenous Contrast. EXAM DATE/ TIME: 08/13/2017 7:52 PM. CLINICAL HISTORY: 77 years old, female; Signs and symptoms; Dizziness. TECHNIQUE: Axial computed tomography images of the head/ brain without intravenous contrast. All CT scans at. this facility use one or more dose reduction techniques, viz.: automated exposure control; ma/kV. adjustment per patient size (including targeted exams where dose is matched to indication; i.e. head);. or iterative reconstruction technique. Coronal and sagittal reformatted images were created and reviewed. COMPARISON: CT - HEAD W /O CONTRAST 2016-08-30 14:27. FINDINGS: Brain: There is dilatation of sulci gyri and ventricles. There is no midline shift. There is decreased. attenuation in periventricular white matter greatest in the frontal regions. There has been interval. increase in left frontal encephalomalacia. There are no focal masses. There are no focal. hemorrhages. Garcia-white differentiation is visualized. Ventricles: See above. Bones: Cranial vault is intact. Soft tissues: unremarkable. Sinuses: There is no acute sinusitis. Ears and mastoids : Middle ears and mastoids are unremarkable. Orbits: Orbital contents are unremarkable. IMPRESSION: Atrophy and small vessel disease; interval increase in left frontal encephalomalacia;. no bleed. Thank you for allowing us to participate in the care of your patient. Dictated and Authenticated by: Jessica Durand MD. 08/13/2017 9:09 PM Eastern Time ([place] & [place] Medical Decision Making Medical Decision Making: Impression: dizziness Plan: * CT head * Labs * Antivert 12.5 mg PO * IV fluids * UA Disposition - Disposition Referrals: [facility] [Outside] Disposition: HOME/ ROUTINE Disposition Time: 05:11 Condition: GOOD Prescriptions: Meclizine [Meclizine*] 25 mg PO Q6 #15 tab Instructions: Vertigo (a Type of Dizziness) Forms: [employer] (Singaporean) Print Language: VENEZUELAN - Clinical Impression Clinical Impression: Vertigo, Vertigo as late effect of cerebrovascular accident (CVA) - Scribe Statement The provider has reviewed the documentation as recorded by the Scribe Ash Franco All medical record entries made by the Scribe were at my direction and personally dictated by me. I have reviewed the chart and agree that the record accurately reflects my personal performance of the history, physical exam, medical decision making, and the department course for this patient. I have also personally directed, reviewed, and agree with the discharge instructions and disposition.
[2017-08-13] MEDS ORDERED: Sodium Chloride 0.9% 500 ML IV ONE (20:02)
[2017-08-13 20:08] LABS: BASO % 0.5 % (0.0-2.0); EOS # 0.1 K/uL (0.0-0.7); EOS % 0.9 % (0.0-4.0); HEMOGLOBIN 11.8 g/dL (11.0-16.0); LYMPH # 1.9 K/uL (1.0-4.3); LYMPH % 31.5 % (20.0-40.0); MEAN CELL VOLUME 78.1 fL (81.0-99.0); MEAN CORPUSCULAR HEMOGLOBIN 25.9 pg (27.0-31.0); MEAN CORPUSCULAR HGB CONC 33.1 g/dL (33.0-37.0); MEAN PLATELET VOLUME 9.2 fL (7.2-11.7); MONO # 0.6 K/uL (0.0-0.8); MONO % 10.6 % (0.0-10.0); NEUT # 3.4 K/uL (1.8-7.0); NEUT % 56.5 % (50.0-75.0); NRBC % 0.1 % (0.0-2.0); RBC 4.55 Mil/uL (3.80-5.20); RED CELL DISTRIBUTION WIDTH 14.8 % (11.5-14.5)
[2017-08-13 20:20] LABS: CALCIUM 9.1 mg/dl (8.6-10.4); GFR AFRICAN-AMERICAN > 60; GFR NON-AFRICAN AMERICAN > 60
[2017-08-13 20:21] LABS: ALB/GLOB RATIO 1.1 (1.0-2.1); ALBUMIN 4.4 g/dL (3.5-5.0); ALT/SGPT 31 U/L (9-52); AST/SGOT 41 U/L (14-36); BLOOD UREA NITROGEN 13 mg/dL (7-17)
[2017-08-13 20:49] LABS: SQUAMOUS EPITHIAL 1 /hpf (0-5); URINE BACTERIA RARE (<OCC); URINE BILIRUBIN NEGATIVE (NEGATIVE); URINE BLOOD NEGATIVE (NEGATIVE); URINE CLARITY Clear (Clear); URINE COLOR Straw (YELLOW); URINE GLUCOSE (UA) NORMAL (Normal); URINE LEUKOCYTE ESTERASE NEG Leu/uL (Negative); URINE PROTEIN NEGATIVE (NEGATIVE); URINE UROBILINOGEN NORMAL mg/dL (0.2-1.0)
--- NOTE | 2017-08-13 21:10 | CT ---
EXAM: CT Head Without Intravenous Contrast EXAM DATE/TIME: 08/13/2017 7:52 PM CLINICAL HISTORY: 77 years old, female; Signs and symptoms; Dizziness TECHNIQUE: Axial computed tomography images of the head/brain without intravenous contrast. All CT scans at this facility use one or more dose reduction techniques, viz.: automated exposure control; ma/kV adjustment per patient size (including targeted exams where dose is matched to indication; i.e. head); or iterative reconstruction technique. Coronal and sagittal reformatted images were created and reviewed. COMPARISON: CT - HEAD W/O CONTRAST 2016-08-30 14:27 FINDINGS: Brain: There is dilatation of sulci gyri and ventricles. There is no midline shift. There is decreased attenuation in periventricular white matter greatest in the frontal regions. There has been interval increase in left frontal encephalomalacia. There are no focal masses. There are no focal hemorrhages. Garcia-white differentiation is visualized. Ventricles: See above Bones: Cranial vault is intact. Soft tissues: unremarkable Sinuses: There is no acute sinusitis. Ears and mastoids: Middle ears and mastoids are unremarkable. Orbits: Orbital contents are unremarkable. IMPRESSION: Atrophy and small vessel disease; interval increase in left frontal encephalomalacia; no bleed
[2017-08-13 21:37] VITALS: BP 122/67; PULSE 63; RESP 17
[2017-08-14 05:13] VITALS: O2SAT 100
--- NOTE | 2017-08-14 19:08 | CARD ---
APPROVED REPORT EKG Measurement Heart [id number] [place] [id number] <Conclusion> Normal sinus rhythm Normal ECG
== END 2017-08-13 21:37 | disposition home or self-care (01) ==
LOC: C.ER 19:12
DX: R42 Dizziness and giddiness (principal); I69.398 Other sequelae of cerebral infarction
CPT/HCPCS: 70450; 80053; 81001; 82948; 83735; 85025; 93005; 99285; J7040

== ENCOUNTER 2018-06-12 14:32 | Outpatient (CLI) | payer MEDICARE, OTHER | END 2018-06-12 14:33 | disposition home or self-care (01) | LOC: C.MAMMO 14:33 | DX: Z12.31 Encounter for screening mammogram for malignant neoplasm of breast (principal) ==